=== PATIENT | male | born 1985 ===

== ENCOUNTER 2017-07-07 19:29 | Emergency (ER) | payer BC, OTHER ==
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
[2017-07-07] MEDS ORDERED: Ibuprofen 600 MG Tab PO ONE (20:59)
--- NOTE | 2017-07-08 07:06 | CR ---
Left shoulder: Three views of the left shoulder were obtained. Comparison: No prior study. Glenohumeral joint and acromioclavicular joint appear within normal limits. No fracture, dislocation or other bony abnormality is seen. Impression: 1. No abnormality is seen on left shoulder study. Diagnostic code #1
== END 2017-07-07 21:16 | disposition home or self-care (01) ==
LOC: JD.ED 19:29
DX: M75.52 Bursitis of left shoulder (principal); Z88.0 Allergy status to penicillin; V29.9XXA Motorcycle rider (driver) (passenger) injured in unspecified traffic accident, initial encounter
CPT/HCPCS: 73030; 99284; A9270; 99283